=== PATIENT | female | born 1950 | race Two or more races ===

== ENCOUNTER 2018-09-17 23:40 | Emergency (ER) | payer OTHER, MEDICAID ==
[~2018-09-17] VITALS: Ht 162.6 cm; Wt 66.7 kg
[2018-09-17 23:52] VITALS: BP 162/76
[2018-09-18] MEDS ORDERED: HYDROCODONE/APAP 5/325MG 1 EACH TABLET ONE (00:10)
[2018-09-18] MEDS ORDERED: HYDROCODONE/APAP 5/325MG 1 EACH TABLET PO ONE (00:30)
== END 2018-09-18 01:15 | disposition home or self-care (01) ==
LOC: ER 23:43
DX: S13.8XXA Sprain of joints and ligaments of other parts of neck, initial encounter (principal); S00.03XA Contusion of scalp, initial encounter; S09.8XXA Other specified injuries of head, initial encounter; M62.838 Other muscle spasm; R51 Headache; E11.9 Type 2 diabetes mellitus without complications; V49.9XXA Car occupant (driver) (passenger) injured in unspecified traffic accident, initial encounter; Y93.89 Activity, other specified; Y92.488 Other paved roadways as the place of occurrence of the external cause; Y99.8 Other external cause status
CPT/HCPCS: 70450-TC; 72125-TC